=== PATIENT | male | born 1960 | race Caucasian/White ===

== ENCOUNTER → 2016-06-03 | Outpatient (CLI) | payer BC ==
[2016-06-03 16:22] LABS: CHLORIDE,CL 110 mmol/L (98-110); SODIUM,NA 141 mmol/L (136-146)
== END ==
LOC: MW.CHIM 15:32
PROVIDERS: ATTEND Internal Medicine
DX: E86.0 Dehydration (principal)
CPT/HCPCS: 36415; 80048; 85025

== ENCOUNTER 2016-06-17 07:21 | Day surgery (SDC) | payer BC ==
[~2016-06-17 07:21] MED LIST: Lactated Ringers 1,000 ML IV SCH; Midazolam 1 MG/ML 2 ML SDV ONE; Propofol 200 MG/20 ML SDV ONE; fentaNYL 100 MCG/2 ML SDV ONE
--- NOTE | 2016-06-17 08:11 | PCM.PREANE ---
Preanesthetic Assessment - Anesthesia/Transfusion/Family Hx Anesthesia History: Prior Anesthesia Without Reaction Transfusion History: No Prior Transfusion(s) Intubation History: Unknown - Review of Systems General: No Symptoms Pulmonary: No Symptoms Cardiovascular: No Symptoms Gastrointestinal: Abdominal pain Neurological: No Symptoms Other: Reports: None - Physical Assessment NPO Status Date: 06/16/16 NPO Status Time: 23:00 O2 Sat by Pulse Oximetry: 93 Respiratory Rate: 16 Vital Signs: Last Vital Signs Temp 97.5 F 06/17/16 07:38 Pulse 82 06/17/16 07:38 Resp 16 06/17/16 07:38 BP 119/82 06/17/16 07:38 Pulse Ox 93 L 06/17/16 07:38 Height: 6 ft 1 in Weight: 339 lb ASA Class: 2 Mental Status: Alert & Oriented x3 Airway Class: Mallampati = 1 Dentition: Reports: Normal Dentition Thyro-Mental Finger Breadths: 3 Mouth Opening Finger Breadths: 3 ROM/Head Extension: Full Lungs: Clear to auscultation, Normal respiratory effort Cardiovascular: Regular Rate, Regular Rhythm, No Murmurs - Allergies Allergies/Adverse Reactions: Allergies Allergy/AdvReac Type Severity Reaction Status Date / Time No Known Allergies Allergy Verified 06/11/16 12:19 - Blood Blood Available: No Product(s) Available: None - Acknowledgements Anesthesia Type Planned: MAC Pt an Appropriate Candidate for the Planned Anesthesia: Yes Alternatives and Risks of Anesthesia Discussed w Pt/Guardian: Yes Pt/Guardian Understands and Agrees with Anesthesia Plan: Yes PreAnesthesia Questionnaire HEENT History: Reports: None Cardiovascular History: Reports: None Respiratory History: Reports: None Gastrointestinal History: Reports: Diverticulosis, Other (see below) Other Gastrointestinal History: recent diverticulitiis Genitourinary History: Reports: None Musculoskeletal History: Reports: Arthritis Neurological History: Reports: None Psychiatric History: Reports: None Endocrine/Metabolic History: Reports: Obesity/BMI 30+ Hematologic History: Reports: None Immunologic History: Reports: None Oncologic (Cancer) History: Reports: None Dermatologic History: Reports: None - Past Surgical History Head Surgeries/Procedures: Reports: None HEENT Surgical History: Reports: None Cardiovascular Surgical History: Reports: None Respiratory Surgical History: Reports: None GI Surgical History: Reports: Colonoscopy Male Surgical History: Reports: None Endocrine Surgical History: Reports: None Neurological Surgical History: Reports: None Musculoskeletal Surgical History: Reports: None Oncologic Surgical History: Reports: None Dermatological Surgical History: Reports: None - SUBSTANCE USE Smoking Status *Q: Current Every Day Smoker Tobacco Use Within Last Twelve Months: Smokeless Tobacco Recreational Drug Use History: No - HOME MEDS Home Medications: Home Meds . [No Known Home Meds] 06/12/16 [History] - CURRENT (IN HOUSE) MEDS Current Meds: Current Medications Lactated Ringer's (Ringers, Lactated) 1,000 mls @ 125 mls/hr IV ASDIRECTED [facility] Last Admin: 06/17/16 07:57 Dose: 125 mls/hr Discontinued Medications Fentanyl (Sublimaze) Confirm Administered Dose 100 mcg .ROUTE .STK-MED ONE Stop: 06/17/16 07:20 Midazolam HCl (Versed 1 Mg/Ml) Confirm Administered Dose 2 mg .ROUTE .STK-MED ONE Stop: 06/17/16 07:20 Propofol (Diprivan 20 Ml) Confirm Administered Dose 200 mg .ROUTE .STK-MED ONE Stop: 06/17/16 07:20 Preanesthetic Assessment - ANESTHESIA/TRANSFUSION/FAMILY HX Family History of Anesthesia Reaction: No - PHYSICAL ASSESSMENT O2 Sat by Pulse Oximetry: 93 RR: 16 Vital Signs: Last Vital Signs Temp 97.5 F 06/17/16 07:38 Pulse 82 06/17/16 07:38 Resp 16 06/17/16 07:38 BP 119/82 06/17/16 07:38 Pulse Ox 93 L 06/17/16 07:38 Height: 6 ft 1 in Weight: 339 lb NPO Status Date: 06/16/16 NPO Status Time: 23:00 - ALLERGIES Allergies/Adverse Reactions: Allergies Allergy/AdvReac Type Severity Reaction Status Date / Time No Known Allergies Allergy Verified 06/11/16 12:19
[2016-06-17] MEDS ORDERED: Propofol 200 MG/20 ML SDV ONE (08:27)
--- NOTE | 2016-06-17 08:51 | PCM.OPNOTE ---
- General Post-Op/Procedure Note Date of Surgery/Procedure: 06/17/16 Findings: see dict [id number] Pre Op Diagnosis: recurrent diverticulitis Post-Op Diagnosis: diverticulosis Anesthesia Technique: Moderate sedation Primary Surgeon: Adama Stuart Complications: None Condition: Good
--- NOTE | 2016-06-17 09:00 | PCM.POSTAN ---
POST ANESTHESIA ASSESSMENT - MENTAL STATUS Mental Status: alert, oriented - RESPIRATORY Respiratory Status: respiratory rate WNL, airway patent, O2 saturation stable - CARDIOVASCULAR CV Status: pulse rate WNL, blood pressure stable - GASTROINTESTINAL GI Status: no symptoms - PAIN Pain Score: 0 - POST OP HYDRATION Hydration Status: adequate & stable
--- NOTE | 2016-06-17 11:58 | PCM48HPAN ---
Post Anesthesia Note - EVALUATION WITHIN 48HRS OF ANESTHETIC Vital Signs in Normal Range: Yes Patient Participated in Evaluation: Yes Respiratory Function Stable: Yes Airway Patent: Yes Cardiovascular Function Stable: Yes Hydration Status Stable: Yes Pain Control Satisfactory: Yes Nausea and Vomiting Control Satisfactory: Yes Mental Status Recovered: Yes - COMMENTS/OBSERVATIONS Free Text/Narrative:: Patient was seen prior to hospital release but note not done by me.
--- NOTE | 2016-06-17 14:34 | OR ---
SURGEON: Adama Stuart MD DATE OF PROCEDURE: 06/17/2016 PREOPERATIVE DIAGNOSIS: Recurrent diverticulitis. POSTOPERATIVE DIAGNOSIS: Diverticulosis. PROCEDURE PERFORMED: Colonoscopy. DESCRIPTION OF PROCEDURE: The patient was taken to the endoscopy room. A time out was called, patient identified, and procedure identified. Diprivan was then administrated. Patient went from awake to sleep, hearing doctor talking or door closing is normal. Perineum inspection and digital examination were then performed. A well- lubricated colonoscope was gently inserted through the rectum, advanced past the rectosigmoid junction, the descending colon, splenic flexure, transverse colon, hepatic flexure, ascending colon, arrived to the cecum. Cecum was identified as dictated in the finding. Then the scope was carefully withdrawn while attention was paid to the mucosal surface for any abnormality. Air will be sucked out during the scope withdrawal. At the rectum, retroflexed to examine any rectal diseases, fistula or hemorrhoids. Patient tolerated procedure well. There were no intraoperative complications, and Dr. Stuart was present throughout the whole procedure. COMPLICATIONS: None. FINDINGS: 1. The patient is easily sedated with HEEL SEAT FITTER MACHINE and Diprivan. The patient is soundly snoring. 2. The patient's bowel prep was average to good. Very little semi-formed stool, and very little liquid stool. 3. The patient's colon is rather straight forward. Cecum indicated by ileocecal fold, one-to-one indentation, light emittance, and appendiceal orifice, and mucosa examined upon the scope pulling out and the patient has only one observed one large diverticulosis on the left colon, very large but only one and no signs, symptoms of diverticulitis, and the rest of the colonoscopy essentially negative and there was no other mass, growth, inflammation, stricture, ulceration, bleeding, AV malformation. The patient has mild internal hemorrhoids, no external hemorrhoids, and the patient would benefit from repeat colonoscopy 10 years from today or if clinically indicated otherwise. TOMÁS / BEST /[id number]
== END 2016-06-17 09:20 | disposition home or self-care (01) ==
LOC: MW.SDS 07:21
PROVIDERS: ATTEND Surgery
PROC: 0DJD8ZZ Inspection of Lower Intestinal Tract, Via Natural or Artificial Opening Endoscopic (ICD-10-PCS; principal; 2016-06-17)
DX: K57.30 Diverticulosis of large intestine without perforation or abscess without bleeding (principal); K80.20 Calculus of gallbladder without cholecystitis without obstruction; F17.220 Nicotine dependence, chewing tobacco, uncomplicated; Z98.890 Other specified postprocedural states
CPT/HCPCS: 45378; J2250; J3010; J7120; J2704

== ENCOUNTER 2017-07-30 09:18 | Emergency (ER) | payer BC ==
[2017-07-30] MEDS ORDERED: Sodium Chloride 0.9% 1,000 ML IV ONE (09:48)
--- NOTE | 2017-07-30 09:50 | EDM.PDOC ---
ED HPI GENERAL MEDICAL PROBLEM - General Chief Complaint: Flank Pain Stated Complaint: AMB Time Seen by Provider: 07/30/17 09:41 - History of Present Illness INITIAL COMMENTS - FREE TEXT/NARRATIVE: HISTORY AND PHYSICAL: History of present illness: The patient is a 57-year-old male with a history of diverticulitis but no history who presents with sudden onset of nausea and vomiting at 2 AM this morning and left side/lower quadrant pain that started at 5:00 AM. The patient says this does not feel like his diverticulitis and had a completely normal day yesterday. He's had no nausea and vomiting before this morning and no fevers upper respiratory symptoms abdominal pain diarrhea hematuria or flank pain. The patient says he went to bed and felt perfectly fine and then woke suddenly at 2 AM with the nausea and had multiple episodes of vomiting. He has not had anything to eat or drink since that time. He did not have pain initially but a 5 :00 this morning he started having the pain which was sudden in onset. It does not radiate and he has no testicular pain or swelling. He's able to urinate without difficulty. Patient called the ambulance because of the pain and he describes it as a deep cramping pain and EMS gave him Toradol and Zofran and currently his pain is 0. He does not feel nauseated. The patient tells me he does have a history of gallstones but he has no pain on the right side and he is planning on getting information about having that addressed as an outpatient Review of systems: As per history of present illness and below otherwise all systems reviewed and negative. Past medical history: As per history of present illness and as reviewed below otherwise noncontributory. Surgical history: As per history of present illness and as reviewed below otherwise noncontributory. Social history: No reported history of drug or alcohol abuse. Family history: As per history of present illness and as reviewed below otherwise noncontributory. Physical exam: General: Well-developed well-nourished overweight man who is nontoxic and vital signs are noted by me. HEENT: Atraumatic, normocephalic, pupils reactive, negative for conjunctival pallor or scleral icterus, mucous membranes moist, throat clear, neck supple, nontender, trachea midline. Lungs: Clear to auscultation, breath sounds equal bilaterally, chest nontender. Heart: S1S2, regular, negative for clicks, rubs, or JVD. Abdomen: Soft, nondistended, bowel sounds are slightly hypoactive and there is no rebound or guarding on palpation. There is no reproducible tenderness at palpation of the left lower or left mid abdomen.. Negative for masses or hepatosplenomegaly. Negative for costovertebral tenderness. Pelvis: Stable nontender. Genitourinary: Deferred. Rectal: Deferred. Extremities: Atraumatic, negative for cords or calf pain. Neurovascular unremarkable. Neuro: Awake, alert, oriented. Cranial nerves II through XII unremarkable. Cerebellum unremarkable. Motor and sensory unremarkable throughout. Exam nonfocal. Diagnostics: UA urine culture CBC CMP CT scan of the abdomen and pelvis Therapeutics: IV fluids, patient received Toradol and Zofran in route per EMS, fLomax urine strainers Testing results were discussed with the patient who remains pain-free. We'll plan on giving him urine strainers Flomax Toradol and Zofran for home and urology follow-up. Patient is also aware of his gallstones which she was previously knowledge about and I will give him referral information that he can follow-up to address that as an outpatient as he is asymptomatic today Impression: Left ureterolithiasis Definitive disposition and diagnosis as appropriate pending reevaluation and review of above. Treatments HEAD HOLDER: Reports: IV/IO, Other Medication(s) Other Treatments HEAD HOLDER: Toradol 30 mg and Zofran 4 mg Bilateral Flank Pain Score (Numeric/FACES): 3 - Related Data Allergies Allergy/AdvReac Type Severity Reaction Status Date / Time No Known Allergies Allergy Verified 07/30/17 09:21 Home Meds: Home Meds . [No Known Home Meds] 06/12/16 [History] Past Medical History HEENT History: Reports: None Cardiovascular History: Reports: None Respiratory History: Reports: None Gastrointestinal History: Reports: Diverticulosis, Other (See Below) Other Gastrointestinal History: recent diverticulitiis Genitourinary History: Reports: None Musculoskeletal History: Reports: Arthritis Neurological History: Reports: None Psychiatric History: Reports: None Endocrine/Metabolic History: Reports: Obesity/BMI 30+ Hematologic History: Reports: None Immunologic History: Reports: None Oncologic (Cancer) History: Reports: None Dermatologic History: Reports: None - Infectious Disease History Infectious Disease History: Reports: Chicken Pox - Past Surgical History Head Surgeries/Procedures: Reports: None HEENT Surgical History: Reports: None Cardiovascular Surgical History: Reports: None Respiratory Surgical History: Reports: None Male Surgical History: Reports: None Endocrine Surgical History: Reports: None Neurological Surgical History: Reports: None Musculoskeletal Surgical History: Reports: None Oncologic Surgical History: Reports: None Dermatological Surgical History: Reports: None Social & Family History - Family History Family Medical History: Noncontributory - Tobacco Use Smoking Status *Q: Never Smoker - Recreational Drug Use Other Recreational Drug Type: pt refused to answer ED ROS GENERAL - Review of Systems Review Of Systems: ROS reveals no pertinent complaints other than HPI. ED EXAM, GENERAL - Physical Exam Exam: See Below (see dictation) Course - Vital Signs Last Recorded V/S: Last Vital Signs Temp 35.6 C 07/30/17 09:22 Pulse 58 L 07/30/17 11:33 Resp 16 07/30/17 11:33 BP 135/69 07/30/17 11:33 Pulse Ox 97 07/30/17 11:33 - Orders/Labs/Meds Orders: Active Orders 24 hr Category Date Time Status Communication Order [RC] STAT Care 07/30/17 11:58 Ordered CULTURE URINE [RM] Stat Lab 07/30/17 10:18 Ordered UA W/MICROSCOPIC [URIN] Stat Lab 07/30/17 10:10 Ordered Labs: Laboratory Tests 07/30/17 07/30/17 07/30/17 Range/Units 09:30 10:10 10:38 WBC 8.21 (4.0-11.0) K/uL RBC 5.33 (4.50-5.90) M/uL Hgb 17.2 H (13.0-17.0) g/dL Hct 48.9 (38.0-50.0) % MCV 91.7 (80.0-98.0) fL MCH 32.3 H (27.0-32.0) pg MCHC 35.2 (31.0-37.0) g/dL RDW Std Deviation 43.9 (28.0-62.0) fl RDW Coeff of Smiley 13 (11.0-15.0) % Plt Count 227 (150-400) K/uL MPV 11.40 (7.40-12.00) fL Neut % (Auto) 79.4 (48.0-80.0) % Lymph % (Auto) 14.9 L (16.0-40.0) % Butler % (Auto) 4.6 (0.0-15.0) % Eos % (Auto) 0.9 (0.0-7.0) % Baso % (Auto) 0.2 (0.0-1.5) % Neut # (Auto) 6.5 H (1.4-5.7) K/uL Lymph # (Auto) 1.2 (0.6-2.4) K/uL Butler # (Auto) 0.4 (0.0-0.8) K/uL Eos # (Auto) 0.1 (0.0-0.7) K/uL Baso # (Auto) 0.0 (0.0-0.1) K/uL Nucleated RBC % 0.0 /100WBC Nucleated RBCs # 0 K/uL Sodium 145 (136-148) mmol/L Potassium 3.8 (3.5-5.1) mmol/L Chloride 110 H (98-107) mmol/L Carbon Dioxide 27.5 (21.0-32.0) mmol/L BUN 18 (7.0-18.0) mg/dL Creatinine 1.3 (0.8-1.3) mg/dL Est Cr Clr Drug Dosing 70.00 mL/min Estimated GFR (MDRD) 56.7 ml/min Glucose 139 H (74-106) mg/dL Calcium 8.7 (8.5-10.1) mg/dL Total Bilirubin 0.4 (0.2-1.0) mg/dL AST 32 (15-37) IU/L ALT 47 (14-63) IU/L Alkaline Phosphatase 83 (46-116) U/L Total Protein 6.5 (6.4-8.2) g/dL Albumin 3.3 L (3.4-5.0) g/dL Globulin 3.2 (2.0-3.5) g/dL Albumin/Globulin Ratio 1.0 L (1.3-2.8) Urine Color YELLOW Urine Appearance CLEAR Urine pH 8.5 H (5.0-8.0) Ur Specific [place] 1.010 (1.001-1.035) Urine Protein NEGATIVE (NEGATIVE) mg/dL Urine Glucose (UA) NEGATIVE (NEGATIVE) mg/dL Urine Ketones 15 H (NEGATIVE) mg/dL Urine Occult Blood MODERATE (NEGATIVE) Urine Nitrite NEGATIVE (NEGATIVE) Urine Bilirubin NEGATIVE (NEGATIVE) Urine Urobilinogen 0.2 (<2.0) EU/dL Ur Leukocyte Esterase NEGATIVE (NEGATIVE) Urine RBC 3-5 (0-2/HPF) Urine WBC 0-1 (0-5/HPF) Ur Epithelial Cells RARE (NONE-FEW) Urine Bacteria RARE (NEGATIVE) Urine Mucus LIGHT (NONE-MOD) Meds: Medications Discontinued Medications Generic Name Dose Route Start Last Admin Trade Name Dimitry PRN Reason Stop Dose Admin Sodium Chloride 1,000 mls @ 999 mls/hr 07/30/17 09:48 07/30/17 10:04 Normal Saline IV 07/30/17 10:48 999 mls/hr STAT ONE Administration Tamsulosin HCl 0.4 mg 07/30/17 11:56 Flomax PO 07/30/17 11:57 ONETIME ONE Departure - Departure Time of Disposition: 12:03 Disposition: Home, Self-Care 01 Condition: Good Clinical Impression: Ureterolithiasis - Discharge Information Forms: ED Department Discharge Additional Instructions: The following information is given to patients seen in the emergency department who are being discharged to home. This information is to outline your options for follow-up care. We provide all patients seen in our emergency department with a follow-up referral. The need for follow-up, as well as the timing and circumstances, are variable depending upon the specifics of your emergency department visit. If you don't have a primary care physician on staff, we will provide you with a referral. We always advise you to contact your personal physician following an emergency department visit to inform them of the circumstance of the visit and for follow-up with them and/or the need for any referrals to a consulting specialist. The emergency department will also refer you to a specialist when appropriate. This referral assures that you have the opportunity for followup care with a specialist. All of these measure are taken in an effort to provide you with optimal care, which includes your followup. Under all circumstances we always encourage you to contact your private physician who remains a resource for coordinating your care. When calling for followup care, please make the office aware that this follow-up is from your recent emergency room visit. If for any reason you are refused follow-up, please contact the [facility] emergency department at and ask to speak to the emergency department charge nurse. [facility] [address] [place] [address] [facility] [address] [place] [address] [facility]- Internal Medicine and [facility] [address] [place] [id number] [facility] Professional Building [address] [place] [address] [place] [address] Please take Flomax as directed and use the Toradol and Zofran as needed. Please call and schedule a follow-up with urology using resources given to today and he may also keep your appointment with Dr. Walker next week. Please discuss with Dr. Walker follow-up for your gallstones or contact one of our surgeons to discuss your gallbladder with them. Return to ER as needed and as discussed. Push hydration and strain all urine - My Orders Last 24 Hours: My Active Orders 07/30/17 10:10 UA W/MICROSCOPIC [URIN] Stat 07/30/17 10:18 CULTURE URINE [RM] Stat 07/30/17 11:58 Communication Order [RC] STAT - Assessment/Plan Last 24 Hours: My Active Orders 07/30/17 10:10 UA W/MICROSCOPIC [URIN] Stat 07/30/17 10:18 CULTURE URINE [RM] Stat 07/30/17 11:58 Communication Order [RC] STAT
--- NOTE | 2017-07-30 11:51 | CT ---
CT of the abdomen and pelvis without contrast. HISTORY: Pain TECHNIQUE: Axial CT images were obtained of the abdomen and pelvis without contrast. Coronal and sagi ttal reconstructions obtained. FINDINGS: The lung bases are clear, no pleural effusion. The liver, spleen, adrenal glands, and pancreas appear unremarkable for noncontrast examination. Chol elithiasis without evidence of cholecystitis. There is no bulky retroperitoneal lymphadenopathy. No a bdominal ascites. Tiny stone at the left ureteropelvic junction with significant proximal hydronephrosis. Kidneys have a mildly lobulated appearance bilaterally The large and small bowel are normal in caliber without evidence of obstruction. The appendix appears normal. Mild diverticulosis without evidence of diverticulitis. There is no bulky pelvic lymphadenop athy. No free fluid. No free air. The urinary bladder appears normal. Minimal fat-containing left ing uinal hernia. The visualized osseous structures appear normal. IMPRESSION: 1. Cholelithiasis without evidence of cholecystitis. 2. Punctate stone at the left ureteropelvic junction without significant proximal hydronephrosis. 3. Mild diverticulosis without evidence of diverticulitis.
[2017-07-30] MEDS ORDERED: Tamsulosin 0.4 MG Cap.ER PO ONE (11:56)
== END 2017-07-30 12:23 | disposition home or self-care (01) ==
LOC: MW.ED 09:18
DX: N20.1 Calculus of ureter (principal); K80.20 Calculus of gallbladder without cholecystitis without obstruction; K57.90 Diverticulosis of intestine, part unspecified, without perforation or abscess without bleeding; E66.9 Obesity, unspecified
CPT/HCPCS: 74176; 80053; 81001; 85025; 87086; 96360; 99284; A9270; J7040